=== PATIENT | female | born 1970 | race Caucasian/White ===

== ENCOUNTER → 2017-08-05 | Outpatient (CLI) | payer OTHER | LOC: RAD 11:06 | DX: Z12.31 Encounter for screening mammogram for malignant neoplasm of breast (principal) ==

== ENCOUNTER → 2018-08-01 | Outpatient (CLI) | payer OTHER | LOC: RAD 14:34 | DX: Z12.31 Encounter for screening mammogram for malignant neoplasm of breast (principal) ==

== ENCOUNTER → 2019-08-22 | Outpatient (CLI) | payer OTHER | LOC: BC 12:51 | DX: Z12.31 Encounter for screening mammogram for malignant neoplasm of breast (principal) ==

== ENCOUNTER → 2019-08-30 | Outpatient (CLI) | payer OTHER | LOC: RAD 08:29 → BC 14:08 → RAD 14:13 → BC 20:59 | DX: R92.2 Inconclusive mammogram (principal) ==

== ENCOUNTER → 2020-05-16 | Outpatient (CLI) | payer OTHER ==
[2020-05-16 09:42] LABS: HEMATOCRIT 47.5 % (37.0-47.0); HEMOGLOBIN 16.5 gm/dL (12.0-15.0); MCH 32.3 pg (26.0-34.0); MCHC 34.7 g/dL (28.0-37.0); MCV 93.2 fL (80.0-100.0); RBC 5.1 mil/uL (4.20-5.00); RDW 12.6 % (10.5-14.5); WBC 5.2 thou/uL (4.0-11.0)
[2020-05-16 09:59] LABS: ALBUMIN 4.1 g/dL (3.4-5.0); ANION GAP 6 mmol/L (7-16); BUN 16 mg/dL (7-18); CALCIUM 9.3 mg/dL (8.5-10.1); CHLORIDE 102 mmol/L (98-107); CHOLESTEROL 259 mg/dL (<200); CO2 30 mmol/L (21-32); CREATININE 1.1 mg/dL (0.6-1.0); GLUCOSE 101 mg/dL (74-106); HDL CHOLESTEROL 80 mg/dL (>40); LDL CHOLESTEROL 159 mg/dL (<100); POTASSIUM 4.6 mmol/L (3.5-5.1); SGOT 23 U/L (15-37); SGPT 29 U/L (30-65); SODIUM 138 mmol/L (136-145); TC:HDL 3.2 Ratio (Not establshd); TOTAL BILIRUBIN 0.4 mg/dL (0.2-1.0); TOTAL PROTEIN 7.4 g/dL (6.4-8.2); TRIGLYCERIDE 101 mg/dL (<150); VLDL 20 mg/dL (<40)
== END ==
LOC: LABMALL 08:49
PROVIDERS: ATTEND Family Medicine
DX: E78.5 Hyperlipidemia, unspecified (principal); E55.9 Vitamin D deficiency, unspecified; E89.41 Symptomatic postprocedural ovarian failure

== ENCOUNTER → 2020-05-23 | Outpatient (CLI) | payer OTHER ==
[2020-05-24 01:06] LABS: LUTEINIZING HORMONE (LH) 7.9 mIU/mL (())
== END ==
LOC: LABMALL 11:32
PROVIDERS: ATTEND Family Medicine
DX: E78.5 Hyperlipidemia, unspecified (principal); E55.9 Vitamin D deficiency, unspecified; E89.41 Symptomatic postprocedural ovarian failure

== ENCOUNTER → 2020-05-30 | Outpatient (CLI) | payer OTHER ==
[~2020-05-30] VITALS: Ht 157.5 cm; Wt 59.0 kg
[~2020-05-30] MED LIST: CENTRUM ADULTS1 EACH PO; CHILDREN'S ASPI81 M1 PO; FISH OIL 1,0001 EAC9 PO; LEXAPRO20 MG PO; MAGNESIUM OXID500 M1 PO; OMEPRAZOLE40 MG PO; PROBIOTIC1 EAC7 PO; VITAMIN D350 MCG PO; XALATAN2.5 M1 OPHTHALMIC; XYZAL5 MG PO
--- NOTE | 2020-06-02 18:06 | PATH ---
[facility] [address] [place] [address] PATHOLOGY RPT PROCEDURE Name: JOSE ARMANDO GRIMM Room #: REG [facility]st.#: [id number] Admission: 05/30/20 Date of : 68 Discharge: Report #: [id number] Path Case #: [id number] [facility] Accession Number: [id number] . 01 Material submitted: . rectum - BIOPSY OF RECTUM R/O ADENOMA . 01 Clinical history: . SCREENING . 02 Diagnosis: Large intestine, rectum rule out adenoma, endoscopic biopsy: - Compatible with a hyperplastic polyp and lymphoid aggregate with an adjacent mucosa. - Negative for dysplasia. (IUV/db; 06/02/2020) LBQ 06/02/2020 1147 Local . 02 Electronically signed: . Juliana Boothe MD, Pathologist NPI- [id number] . 01 Gross description: . Received in formalin labeled "Jose Armando Grimm, BX of rectum rule out adenoma" are two arce-brown soft tissue fragments measuring in aggregate 0.5 x 0.4 x 0.1 cm. The specimen is submitted entirely in A1. ([facility]; 06/01/2020) [facility] 06/01/2020 1435 Local . 02 Pathologist provided ICD-10: Z12.11 . 02 CPT . 347368 Specimen Comment: A courtesy copy of this report has been sent to [phone], [phone] Specimen Comment: [phone], Specimen Comment: Report sent to DR SANTOS,DR BARRETT / DR HALL Performed at: [address], [place] [id number] MD Harjeet Vigil MD Phone: [phone] Performed at: [address] [id number] MD Juliana Boothe MD Phone: [phone]
--- NOTE | 2020-06-04 08:45 | P ---
[facility] [place] [address] PROCEDURE REPORT Name: JOSE ARMANDO CASTILLO Room #: REG [facility].#: [id number] Admission: 05/30/20 Attend Phys: Fortino Gaspar Discharge: Date of : 68 Report #: [id number] THIS REPORT FOR: cc: Sania Stone MD, Nora P. MD McElhinney, Christian C. MD ~ CC: Fortino Stone MD DATE OF SERVICE: 05/30/2020 PROCEDURE PERFORMED: Colonoscopy with biopsies. HISTORY OF PRESENT ILLNESS: The patient is a 49-year-old female with a history of multiple colonic polyps in the past. She has undergone multiple colonoscopies over the years. In fact, she has had 2 partial surgical resections of polyps. No immediate family members with colon cancer. She does have an aunt with a history of colon cancer. She denies any symptoms at this time. Last colonoscopy was approximately 2-3 years ago. Again, she has been having frequent colonoscopies due to polyps in the past. DESCRIPTION OF PROCEDURE: The risks and benefits of the procedure were explained to the patient, those risks including but not limited to bleeding, perforation, the risk of sedation. She understood these risks and gave informed consent. Sedation was given using propofol per anesthesia. Next, a digital rectal exam was initially performed, which was normal. Next, using a standard Olympus colonoscope, the scope was placed in the patient's anus and advanced under direct vision to the cecum. The overall prep was excellent. The cecum and ileocecal valve were normal in appearance. Ascending, transverse, descending and sigmoid colon were all normal. In the distal rectum, there appears to be scarring from previous surgical resection. Near that area, there was a small area of possible polyp tissue. This was removed with cold forceps was approximately 4 mm in size. On retroflexion, small internal hemorrhoid noted as well as mild scarring in this area again noted. The scope was then withdrawn and the procedure terminated. The patient tolerated the procedure well. IMPRESSION: 1. Possible small polyp in the distal rectum near previous surgical site. 2. Small internal hemorrhoid. 3. Otherwise, normal colonoscopy. RECOMMENDATIONS: 1. Await biopsy results. [address] [address] PROCEDURE REPORT Name: ANNAFLORIDAJOSE ARMANDO CHAD Room #: REG [facility] Aris.#: [id number] Admission: 05/30/20 Attend Phys: Fortino Gaspar Discharge: Date of : 68 Report #: [id number] 2. If tissue is adenomatous, would recommend repeat colonoscopy in 2 years; if negative, would recommend colonoscopy in 3 years due to her significant history of previous polyps and surgical resection in the past. Thank you for allowing me to participate in her care. <ELECTRONICALLY SIGNED> By: Fortino Hicks MD 06/04/20 0845 1231 1400 Fortino Hicks MD /harjit
== END | disposition home or self-care (01) ==
LOC: GI 09:22
PROVIDERS: ATTEND Specialist
DX: Z12.11 Encounter for screening for malignant neoplasm of colon (principal); Z86.010 Personal history of colon polyps; Z80.0 Family history of malignant neoplasm of digestive organs; K62.1 Rectal polyp; K64.8 Other hemorrhoids; H40.9 Unspecified glaucoma; Z98.0 Intestinal bypass and anastomosis status; Z20.828 Contact with and (suspected) exposure to other viral communicable diseases; Z98.890 Other specified postprocedural states; Z79.899 Other long term (current) drug therapy; Z90.49 Acquired absence of other specified parts of digestive tract; Z90.711 Acquired absence of uterus with remaining cervical stump; Z87.19 Personal history of other diseases of the digestive system; Z79.82 Long term (current) use of aspirin
CPT/HCPCS: 62110; 62900

== ENCOUNTER → 2020-09-04 | Outpatient (CLI) | payer OTHER ==
[2020-09-04 09:46] LABS: ABSOLUTE NEUTROPHILS 2.2 thou/uL (1.4-8.2); BASOPHILS 1.2 % (0.0-2.0); EOSINOPHILS 9.4 % (0.0-3.0); HEMATOCRIT 41.7 % (37.0-47.0); LYMPHOCYTES 30.9 % (24.0-44.0); MCHC 33.5 g/dL (28.0-37.0); MCV 89.7 fL (80.0-100.0); MONOCYTES 10.7 % (1.0-8.0); PLATELET COUNT 206 thou/uL (150-400); POLYS 47.8 % (36.0-66.0); RBC 4.65 mil/uL (4.20-5.00); WBC 4.6 thou/uL (4.0-11.0)
[2020-09-04 09:56] LABS: POTASSIUM 4.6 mmol/L (3.5-5.1)
== END ==
LOC: BC 08:57
PROVIDERS: ATTEND Family Medicine
DX: Z12.31 Encounter for screening mammogram for malignant neoplasm of breast (principal); E78.5 Hyperlipidemia, unspecified; D58.2 Other hemoglobinopathies

== ENCOUNTER → 2021-01-02 | Outpatient (CLI) | payer OTHER | LOC: LAB 14:02 | PROVIDERS: ATTEND Family Medicine | DX: U07.1 COVID-19 (principal) ==

== ENCOUNTER → 2021-04-27 | Outpatient (CLI) | payer OTHER ==
[2021-04-27 13:59] LABS: ABSOLUTE NEUTROPHILS 3.5 thou/uL (1.4-8.2); BASOPHILS 0.9 % (0.0-2.0); HEMATOCRIT 38.9 % (37.0-47.0); HEMOGLOBIN 12.4 gm/dL (12.0-15.0); LYMPHOCYTES 24.1 % (24.0-44.0); MCH 24.7 pg (26.0-34.0); MCHC 31.9 g/dL (28.0-37.0); MCV 77.4 fL (80.0-100.0); MONOCYTES 7.5 % (1.0-8.0); PLATELET COUNT 262 thou/uL (150-400); POLYS 64.5 % (36.0-66.0); RBC 5.03 mil/uL (4.20-5.00); RDW 17.7 % (10.5-14.5); WBC 5.4 thou/uL (4.0-11.0)
[2021-04-27 14:15] LABS: ALBUMIN 4.3 g/dL (3.4-5.0); ANION GAP 9 mmol/L (7-16); BUN 14 mg/dL (7-18); CALCIUM 9.1 mg/dL (8.5-10.1); CHLORIDE 104 mmol/L (98-107); CHOLESTEROL 283 mg/dL (<200); CO2 30 mmol/L (21-32); CREATININE 1.1 mg/dL (0.6-1.0); GLUCOSE 93 mg/dL (74-106); HDL CHOLESTEROL 86 mg/dL (>40); LDL CHOLESTEROL 172 mg/dL (<100); POTASSIUM 4.1 mmol/L (3.5-5.1); SGOT 25 U/L (15-37); SGPT 32 U/L (30-65); SODIUM 143 mmol/L (136-145); TC:HDL 3.3 Ratio (Not establshd); TOTAL BILIRUBIN 0.4 mg/dL (0.2-1.0); TRIGLYCERIDE 128 mg/dL (<150); VLDL 26 mg/dL (<40)
== END ==
LOC: LAB 12:56
PROVIDERS: ATTEND Family Medicine
DX: E78.5 Hyperlipidemia, unspecified (principal); E55.9 Vitamin D deficiency, unspecified

== ENCOUNTER → 2021-07-13 | Outpatient (CLI) | payer OTHER | LOC: LAB 06:09 | PROVIDERS: Student in an Organized Health Care Education/Training Program; ATTEND Specialist | DX: Z01.812 Encounter for preprocedural laboratory examination (principal); Z20.822 Contact with and (suspected) exposure to COVID-19 ==

== ENCOUNTER → 2021-07-15 | Outpatient (CLI) | payer OTHER ==
[~2021-07-15] VITALS: Ht 157.5 cm; Wt 54.4 kg
--- NOTE | 2021-07-17 10:47 | P ---
[facility] [place] [address] PROCEDURE REPORT Name: JOSE ARMANDO CASTILLO Room #: REG [facility]#: [id number] Admission: 07/15/21 Attend Phys: Fortino Gaspar Discharge: Date of : 68 Report #: [id number] THIS REPORT FOR: cc: Sania Stone MD, Nora P. MD McElhinney, Christian C. MD ~ cc: Sania Stone MD DATE OF SERVICE: 07/15/2021 PROCEDURE PERFORMED: Colonoscopy. HISTORY OF PRESENT ILLNESS: The patient is a 50-year-old female with a history of multiple colon polyps in the past. Last colonoscopy was a year ago, which was negative. She has undergone 2 partial surgical resections for polyps in the past. No immediate family members with colon cancer. She does have an aunt with a history of colon cancer. Denies any symptoms currently. Plan is for colonoscopy. DESCRIPTION OF PROCEDURE: The risks and benefits of the procedure were explained to the patient, those risks including but not limited to bleeding, perforation and the risk of sedation. She understood these risks and gave informed consent. Sedation was given using propofol per Anesthesia. Next, a digital rectal exam was initially performed, which was normal. Next, using a standard Olympus colonoscope, the scope was placed in the patient's anus and advanced under direct vision to the cecum. The overall prep was excellent. Cecum and ileocecal valve were normal in appearance. Terminal ileum was intubated and normal in appearance. The ascending, transverse, descending and sigmoid colon were normal. The rectal mucosa was normal in the mid and upper portion. On retroflexion, mild scarring from previous polypectomy site was noted. No evidence of polyps. Scope was then withdrawn and the procedure terminated. The patient tolerated the procedure well. IMPRESSION: Normal colonoscopy. No evidence of polyps on exam today. RECOMMENDATIONS: Repeat colonoscopy in 2 years. Thank you for allowing me to participate in her care. <ELECTRONICALLY SIGNED> By: Fortino Hicks MD 07/17/21 1047 1021 1316 Fortino Hicks MD /nt
--- NOTE | 2021-07-17 10:47 | P ---
[facility] [place] [address] PROCEDURE REPORT Name: JOSE ARMANDO CASTILLO Room #: REG [facility]#: [id number] Admission: 07/15/21 Attend Phys: Fortino Gaspar Discharge: Date of : 68 Report #: [id number] THIS REPORT FOR: cc: Sania Stone MD, Nora P. MD McElhinney, Christian C. MD ~ cc: Sania Stone MD DATE OF SERVICE: 07/15/2021 PROCEDURE PERFORMED: Upper endoscopy with esophageal dilation. HISTORY OF PRESENT ILLNESS: The patient is a 50-year-old female with a history of gastroesophageal reflux disease, taking Prilosec on a daily basis. She also takes aspirin, possible history of peptic ulcer disease. She does report intermittent dysphagia. Plan is for EGD and colonoscopy today. She has a history of multiple colon polyps in the past. DESCRIPTION OF PROCEDURE: The risks and benefits of the procedure were explained to the patient, those risks including but not limited to bleeding, perforation and the risk of sedation. She understood these risks and gave informed consent. Sedation was given using propofol and fentanyl per anesthesia. Next, using a standard Olympus upper endoscope, the scope was placed in the patient's mouth and advanced under direct vision through the esophagus, stomach and into the second portion of the duodenum. The larynx was normal in appearance. A small inlet patch was noted in the proximal esophagus. The mid and distal esophagus were normal. Overall, the gastric mucosa was normal except in the fundus on retroflexion, there was a 1-1.5 cm submucosal mass. This was not ulcerated and it was submucosal, otherwise normal gastric mucosa. The pylorus was normal and patent. The duodenal bulb, first and second portion were all normal. The scope was then brought back up into the patient's stomach and a Savary guidewire was inserted through the scope, leaving the guidewire in place as the scope was then withdrawn. Next, a 48-Lebanese Savary dilation of the esophagus was then performed without difficulty. The wire and dilator removed. The scope was reintroduced into the patient's stomach. There was no evidence of mucosal tear after dilation. The scope was then withdrawn and the procedure terminated. The patient tolerated the procedure well. IMPRESSION: 1. Small 1 cm submucosal mass in the gastric fundus. 2. Otherwise, normal upper endoscopy. RECOMMENDATIONS: 1. Observe the patient post-dilation. 2. Consider endoscopic ultrasound routinely in the future for further evaluation of a submucosal mass. [address] [address] PROCEDURE REPORT Name: JOSE ARMANDO CASTILLO Room #: REG [facility] ArturoAndrew#: [id number] Admission: 07/15/21 Attend Phys: Fortino Gaspar Discharge: Date of : 68 Report #: [id number] 3. We will proceed with colonoscopy next today. Thank you for allowing me to participate in her care. <ELECTRONICALLY SIGNED> By: Fortino Hicks MD 07/17/21 1047 0952 1300 Fortino Hicks MD /nt
== END | disposition home or self-care (01) ==
LOC: GI 09:17
PROVIDERS: ATTEND Specialist
DX: Z09 Encounter for follow-up examination after completed treatment for conditions other than malignant neoplasm (principal); Z86.010 Personal history of colon polyps; R13.19 Other dysphagia; D37.1 Neoplasm of uncertain behavior of stomach; K21.9 Gastro-esophageal reflux disease without esophagitis; H40.9 Unspecified glaucoma; Z98.890 Other specified postprocedural states; Z79.899 Other long term (current) drug therapy; Z90.49 Acquired absence of other specified parts of digestive tract; Z87.19 Personal history of other diseases of the digestive system; Z79.82 Long term (current) use of aspirin
CPT/HCPCS: 62110; 62900

== ENCOUNTER → 2021-08-26 | Outpatient (CLI) | payer OTHER | LOC: BC 10:42 | PROVIDERS: ATTEND Internal Medicine Nephrology | DX: Z12.31 Encounter for screening mammogram for malignant neoplasm of breast (principal); N28.9 Disorder of kidney and ureter, unspecified; N64.89 Other specified disorders of breast ==